=== PATIENT | male | born 1960 | race Caucasian/White ===

== ENCOUNTER 2021-03-05 13:22 | Inpatient (IN) ==
[2021-03-15] MEDS ORDERED: GLUCAGON 1 MG VIAL IM PRN ×2 (09:03)
[2021-03-15] MEDS ORDERED: DEXTROSE 10% 25 GM/250 ML BAG IV PRN ×2 (09:03)
[2021-03-15] MEDS ORDERED: NITROGLYCERIN SL 0.4 MG TABLET SL PRN (09:08)
[2021-03-15] MEDS ORDERED: CLORAZEPATE 3.75 MG TABLET PO PRN (09:08)
[2021-03-15] MEDS ORDERED: MORPHINE 2 MG/1 ML SYRINGE IV PRN (09:08)
[2021-03-15] MEDS ORDERED: hydrALAZINE 20 MG/1 ML VIAL IV PRN (09:09)
[2021-03-15 10:59] LABS: Basophils % 0.7 % (0.0-0.8); Eosinophils # 0.1 10*3/uL (0.0-0.87); Hematocrit 51.5 VOL% (42.0-52.0); Hemoglobin 16.5 GM/DL (14.0-18.0); Immature Granulocytes % 1.6 %; Immature Granulocytes Absolute 0.09 #; Lymphocytes # 1.2 10*3/uL (1.4-4.0); Lymphocytes % 21.2 % (21.2-54.2); Mean Corpuscular Volume 88.8 FL (87-102); Mean Platelet Volume 11.8 FL (9.6-12.0); Monocytes % 8.9 % (1.7-12.7); Neutrophils % 66.6 % (38.7-73.9); Platelet Count 196 T/CUMM (130-400); Red Cell Distribution Width 12.7 % (9.3-17.3); White Blood Count 5.8 T/CUMM (4-12)
[2021-03-15 11:27] LABS: Alanine Aminotransferase 34 U/L (16-61); Albumin 3.3 G/DL (3.4-5.0); Alkaline Phosphatase 93 U/L (45-117); Aspartate Amino Transferase 19 U/L (0-37); Bilirubin,Total < 0.39 MG/DL (0.20-1.00); Blood Urea Nitrogen 16 MG/DL (7-18); Calcium 9.6 MG/DL (8.5-10.1); Carbon Dioxide 31 MMOL/L (21-32); Glucose 165 MG/DL (74-106); Osmolality,Calculated 279.7 MOS/KG (273-304); Potassium 4.3 MMOL/L (3.5-5.1); Sodium 138 MMOL/L (136-145); Total Protein 8.2 G/DL (6.4-8.2)
[2021-03-15 11:31] LABS: Estimated Glom Filtration Rate 0 ML/MIN
[2021-03-15] MEDS: INSULIN REGULAR 100 UNIT/ML SUBCUT SCH ×3 (13:13→21:29)
[2021-03-15] MEDS ORDERED: SODIUM CHLORIDE 0.9% 1,000 ML IV SCH (15:00)
[2021-03-15] MEDS: CHLORHEXIDINE 4% SOLN 118 ML BOTTLE TOP SCH ×2 (15:10→20:45)
[2021-03-15 15:50] LABS: ABG HCO3 26.1 MMOL/L (20-26); ABG Oxygen Saturation 95.4 % (95-100); ABG PCO2 43.3 MM HG (35-48); ABG PH 7.406 (7.35-7.45); ABG PO2 79.6 MM HG (80-95); ABG TCO2 22.7 MMOL/L (23-27)
[2021-03-15] MEDS: CHLORHEXIDINE 0.12% ORAL RINSE 60 ML BOTTLE SWISH/SPIT SCH (21:29)
[2021-03-16] MEDS ORDERED: VANCOMYCIN 1,000 MG VIAL ONE (04:19)
[2021-03-16] MEDS ORDERED: PAPAVERINE 60 MG/2 ML VIAL ONE (04:19)
[2021-03-16] MEDS ORDERED: VANCOMYCIN 500 MG VIAL ONE (04:19)
[2021-03-16] MEDS: CHLORHEXIDINE 4% SOLN 118 ML BOTTLE TOP SCH ×2 (04:45→19:15)
[2021-03-16] MEDS ORDERED: CEFUROXIME INJ 1,500 MG in SODIUM CHLORIDE 0.9% 100 ML IV ONE (05:00)
[2021-03-16] MEDS ORDERED: FAMOTIDINE 20 MG TABLET PO ONE (05:30)
[2021-03-16] MEDS ORDERED: DIAZEPAM 5 MG TABLET PO ONE (05:30)
[2021-03-16] MEDS ORDERED: SODIUM CHLORIDE 0.9% 250 ML IV ONE ×2 (06:03→11:26)
[2021-03-16] MEDS ORDERED: LACTATED RINGERS 1,000 ML IV ONE (06:03)
[2021-03-16] MEDS ORDERED: HEPARIN/NACL 0.9% 2 UNITS/ML 1,000 UNIT/500 ML BAG IV ONE (06:03)
[2021-03-16] MEDS ORDERED: NITROGLYCERIN DRIP 50 MG/250 ML BOTTLE IV ONE ×2 (06:03→08:41)
[2021-03-16] MEDS ORDERED: SODIUM CHLORIDE 0.9% 1,000 ML IV ONE (06:03)
[2021-03-16] MEDS ORDERED: PHENYLEPHRINE 10 MG/1 ML VIAL IV ONE (06:04)
[2021-03-16] MEDS ORDERED: MIDAZOLAM 10 MG/2 ML VIAL ONE ×4 (06:19→08:22)
[2021-03-16] MEDS ORDERED: AMINOCAPROIC ACID 5,000 MG/20 ML VIAL ONE (06:19)
[2021-03-16] MEDS ORDERED: SUFentanil 250 MCG/5 ML AMP ONE ×3 (06:20)
[2021-03-16] MEDS ORDERED: LIDOCAINE 2% 5 ML VIAL ONE ×2 (06:21→10:15)
[2021-03-16] MEDS ORDERED: SEVOFLURANE 1 UNIT/15 MINUTE INH ONE ×17 (06:21→10:59)
[2021-03-16] MEDS ORDERED: CALCIUM CHLORIDE 1,000 MG/10 ML VIAL IV ONE ×2 (06:21→09:45)
[2021-03-16] MEDS ORDERED: ePHEDrine 50 MG/ML VIAL ONE (06:21)
[2021-03-16] MEDS ORDERED: VECURONIUM 10 MG VIAL IV ONE ×2 (06:21→08:24)
[2021-03-16] MEDS ORDERED: SUCCINYLCHOLINE 200 MG/10 ML VIAL ONE (06:53)
[2021-03-16 07:33] LABS: ABG Base Excess 0.4 MMOL/L (-2.5-2.5); ABG HCO3 24.8 MMOL/L (20-26); ABG Oxygen Saturation 99.1 % (95-100); ABG PCO2 47.7 MM HG (35-48); ABG PH 7.356 (7.35-7.45); ABG TCO2 22.8 MMOL/L (23-27); Glucose Heart Surgery 152 MG/DL (74-106); Hematocrit Heart Surgery 46.2 PERCENT (42-52); Hemoglobin Heart Surgery 15.1 G/DL (14.0-18.0); Ionized Calcium Arterial 1.22 MMOL/L (1.21-1.46); PCO2 Patient Temp Arterial 47.7 MMHG; PH Patient Temp Arterial 7.356; Patient Temperature 37 CELCIUS; Potassium Heart/CVR 4.2 MMOL/L (3.5-5.1); Sodium Heart/CVR 141 MMOL/L (135-145)
[2021-03-16 07:41] LABS: Bilirubin,Urine Negative (Negative); Blood, Urine Negative (Negative); Glucose,Urine (UA) Negative (Negative); Ketones,Urine Negative (Negative); Mucus,Urine Few /LPF (Occasional); Nitrite,Urine Negative (Negative); Protein,Urine 100 MG/DL; RBC,Urine 3 /HPF (0-4); Sperm,Urine Moderate /HPF (Negative); Squamous Epithelial Cell,Urine Occasional /HPF (0-10); Urine Appearance CLEAR (Clear); Urine Color Yellow (Yellow); Urine Specific Gravity 1.021 (1.001-1.035); Urine Urobilinogen < 2.0 EU/DL (<2.0)
[2021-03-16] MEDS ORDERED: MINERAL OIL/PETROLATUM OPH OINT 3.5 GM TUBE ONE (07:45)
[2021-03-16] MEDS ORDERED: PHENYLEPHRINE 1 MG/10 ML SYRINGE IV ONE (07:45)
[2021-03-16] MEDS ORDERED: ETOMIDATE 40 MG/20 ML VIAL IV ONE (07:54)
[2021-03-16] MEDS ORDERED: SODIUM BICARBONATE 50 MEQ/50 ML VIAL IV ONE ×2 (08:12→10:16)
[2021-03-16] MEDS ORDERED: POTASSIUM CHLORIDE RIDER 20 MEQ/100 ML PREMIX IV ONE (08:13)
[2021-03-16] MEDS ORDERED: CALCIUM CHLORIDE 1,000 MG/10 ML SYRINGE IV ONE (08:13)
[2021-03-16] MEDS ORDERED: PHENYLEPHRINE DRIP 40 MG/250 ML PREMIX IV ONE (08:13)
[2021-03-16] MEDS ORDERED: NITROPRUSSIDE 50 MG/2 ML VIAL ONE (08:13)
[2021-03-16] MEDS ORDERED: EPINEPHrine 1 MG/10 ML SYRINGE ONE (08:15)
[2021-03-16] MEDS ORDERED: LIDOCAINE 100 MG/5 ML SYRINGE ONE (08:15)
[2021-03-16] MEDS ORDERED: ALBUMIN 5% 12.5 GM/250 ML VIAL IV ONE ×2 (08:15)
[2021-03-16] MEDS ORDERED: ATROPINE 1 MG/10 ML SYRINGE ONE (08:15)
[2021-03-16 08:53] LABS: Hematocrit Heart Surgery 34.3 PERCENT (42-52); Hemoglobin Heart Surgery 11.1 G/DL (14.0-18.0); PCO2 Patient Temp Venous 36.4 MM HG; PH Patient Temp Venous 7.452; PO2 Patient Temp Venous 37.2 MM HG; Potassium Heart/CVR 4.4 MMOL/L (3.5-5.1); VBG Base Excess 1.6 MEQ/L (0-4); VBG HCO3 25.6 MEQ/L (24-28); VBG Oxygen Saturation 81.2 %; VBG PH 7.408; VBG PO2 45.8 MMHG (17-40); VBG Total CO2 23.8 MMOL/L
[2021-03-16 09:25] LABS: Hematocrit Heart Surgery 37.5 PERCENT (42-52); Hemoglobin Heart Surgery 12.2 G/DL (14.0-18.0); PCO2 Patient Temp Venous 33.7 MM HG; PH Patient Temp Venous 7.479; PO2 Patient Temp Venous 38.3 MM HG; Potassium Heart/CVR 4.1 MMOL/L (3.5-5.1); VBG HCO3 25.8 MEQ/L (24-28); VBG Oxygen Saturation 83.1 %; VBG PH 7.435; VBG PO2 47.1 MMHG (17-40); VBG Total CO2 23.1 MMOL/L
[2021-03-16] MEDS ORDERED: THROMBIN TOPICAL (RECOMBINANT) 5,000 UNIT VIAL TOP ONE (09:31)
[2021-03-16 10:12] LABS: ABG Base Excess -0.4 MMOL/L (-2.5-2.5); ABG Oxygen Saturation 95.4 % (95-100); ABG PCO2 37.7 MM HG (35-48); ABG PO2 77.8 MM HG (80-95); ABG TCO2 20.8 MMOL/L (23-27); Glucose Heart Surgery 241 MG/DL (74-106); Hematocrit Heart Surgery 40.7 PERCENT (42-52); Hemoglobin Heart Surgery 13.2 G/DL (14.0-18.0); Ionized Calcium Arterial 1.26 MMOL/L (1.21-1.46); PCO2 Patient Temp Arterial 37.7 MMHG; PO2 Patient Temp Arterial 77.8 MM HG; Patient Temperature 37 CELCIUS; Sodium Heart/CVR 136 MMOL/L (135-145)
[2021-03-16] MEDS ORDERED: MAGNESIUM SULFATE 5 GM/10 ML VIAL IV ONE (10:15)
[2021-03-16] MEDS ORDERED: ALBUMIN 25% 25 GM/100 ML VIAL IV ONE (10:15)
[2021-03-16] MEDS ORDERED: PROTAMINE SULFATE 50 MG/5 ML VIAL IV ONE ×3 (10:16→11:31)
[2021-03-16] MEDS ORDERED: HEPARIN 10,000 UNIT/10 ML VIAL ONE (10:16)
[2021-03-16] MEDS ORDERED: FUROSEMIDE 20 MG/2 ML VIAL ONE (10:16)
[2021-03-16] MEDS ORDERED: MANNITOL 100 GM/500 ML BAG IV ONE (10:16)
[2021-03-16] MEDS ORDERED: PROTAMINE SULFATE 250 MG/25 ML VIAL IV ONE (10:16)
[2021-03-16] MEDS ORDERED: methylPREDNISolone SOD SUC 1,000 MG/8 ML VIAL ONE (10:16)
[2021-03-16] MEDS ORDERED: DEXTROSE 5% KCL 20 MEQ 20 MEQ/1,000 ML BAG IV ONE (10:16)
[2021-03-16] MEDS ORDERED: LACTATED RINGERS 250 ML IV PRN (10:56)
[2021-03-16] MEDS ORDERED: INSULIN REGULAR 100 UNIT/ML IV PRN (10:56)
[2021-03-16] MEDS ORDERED: INSULIN REGULAR 100 UNIT/ML IV ONE (10:56)
[2021-03-16] MEDS ORDERED: CHLORHEXIDINE 4% SOLN 118 ML BOTTLE TOP PRN (10:56)
[2021-03-16] MEDS ORDERED: MAGNESIUM SULF RIDER 4 GM/100 ML PREMIX IV PRN (10:56)
[2021-03-16] MEDS ORDERED: MIDAZOLAM 2 MG/2 ML VIAL IV PRN (10:56)
[2021-03-16] MEDS ORDERED: NITROPRUSSIDE 100 MG in DEXTROSE 5% 250 ML IV PRN (10:56)
[2021-03-16] MEDS ORDERED: MORPHINE 10 MG/1 ML VIAL IV PRN (10:56)
[2021-03-16] MEDS ORDERED: ONDANSETRON 4 MG/2 ML VIAL IV PRN (10:56)
[2021-03-16] MEDS ORDERED: ACETAMINOPHEN 650 MG SUPP RECTAL PRN (10:56)
[2021-03-16] MEDS ORDERED: MIDAZOLAM 10 MG/2 ML VIAL IV PRN (10:56)
[2021-03-16] MEDS ORDERED: SODIUM CHLORIDE 0.45% 1,000 ML IV SCH ×2 (10:56)
[2021-03-16] MEDS ORDERED: PHENYLEPHRINE DRIP 40 MG/250 ML PREMIX IV PRN (10:56)
[2021-03-16] MEDS ORDERED: DEXTROSE 10% 250 ML BAG IV PRN ×2 (10:56)
[2021-03-16] MEDS ORDERED: MAGNESIUM SULF RIDER 2 GM/50 ML PREMIX IV PRN (10:56)
[2021-03-16] MEDS ORDERED: VECURONIUM 10 MG VIAL IV PRN ×2 (10:56)
[2021-03-16] MEDS ORDERED: CALCIUM CHLORIDE 1,000 MG/10 ML SYRINGE IV PRN (10:56)
[2021-03-16] MEDS ORDERED: POTASSIUM CHLORIDE RIDER 10 MEQ/100 ML PREMIX IV PRN (10:56)
[2021-03-16] MEDS: ALBUMIN 5% 12.5 GM/250 ML VIAL IV PRN ×3 (11:30→13:55)
[2021-03-16 11:44] LABS: ABG Base Excess -0.8 MMOL/L (-2.5-2.5); ABG HCO3 23.7 MMOL/L (20-26); ABG Oxygen Saturation 94.9 % (95-100); ABG PCO2 36.2 MM HG (35-48); ABG PH 7.416 (7.35-7.45); ABG PO2 76.8 MM HG (80-95); ABG TCO2 20.3 MMOL/L (23-27); Glucose Heart Surgery 209 MG/DL (74-106); Hematocrit Heart Surgery 40.4 PERCENT (42-52); Hemoglobin Heart Surgery 13.1 G/DL (14.0-18.0); Potassium Heart/CVR 3.5 MMOL/L (3.5-5.1)
[2021-03-16 11:44] LABS: Basophils % 0.3 % (0.0-0.8); Eosinophils % 0.2 % (0.00-10.9); Hematocrit 38.4 VOL% (42.0-52.0); Immature Granulocytes Absolute 0.11 #; Lymphocytes # 1.7 10*3/uL (1.4-4.0); Lymphocytes % 15.3 % (21.2-54.2); Mean Corpuscular HGB Conc 33.1 GM/DL (32-36); Mean Corpuscular Volume 88.3 FL (87-102); Mean Platelet Volume 11.9 FL (9.6-12.0); Monocytes % 4.8 % (1.7-12.7); Neutrophils % 78.4 % (38.7-73.9); Red Cell Distribution Width 12.6 % (9.3-17.3)
[2021-03-16 11:49] LABS: Hemoglobin 12.7 GM/DL (14.0-18.0); Platelet Count 140 T/CUMM (130-400); Red Blood Count 4.35 MC/CUMM (3.8-5.5); White Blood Count 11.4 T/CUMM (4-12)
[2021-03-16] MEDS: LACTATED RINGERS 1,000 ML IV PRN ×3 (12:00→17:00)
[2021-03-16 12:16] LABS: INR 1.1; PT Patient Result 12.1 SECS (10.5-12.0); Partial Thromboplastin Time 27.3 SECS (23.8-32.1)
[2021-03-16 12:18] LABS: CKMB % 7.5 %; High Sensitive Troponin I* 4024.2 ng/L (0-78)
[2021-03-16] MEDS: INSULIN REGULAR DRIP 100 ML IV SCH (12:23)
[2021-03-16 12:26] LABS: Albumin 2.6 G/DL (3.4-5.0); Bilirubin,Total 0.9 MG/DL (0.20-1.00); Calcium 8.4 MG/DL (8.5-10.1); Potassium 3.6 MMOL/L (3.5-5.1); Total Protein 5.5 G/DL (6.4-8.2)
[2021-03-16 13:21] LABS: ABG Base Excess -1.1 MMOL/L (-2.5-2.5); ABG HCO3 23.5 MMOL/L (20-26); ABG Oxygen Saturation 97.9 % (95-100); ABG PCO2 36.5 MM HG (35-48); ABG PH 7.409 (7.35-7.45); ABG TCO2 20.5 MMOL/L (23-27); Glucose Heart Surgery 199 MG/DL (74-106); Hematocrit Heart Surgery 35.7 PERCENT (42-52); Hemoglobin Heart Surgery 11.6 G/DL (14.0-18.0); Potassium Heart/CVR 3.1 MMOL/L (3.5-5.1)
[2021-03-16] MEDS: POTASSIUM CHLORIDE RIDER 20 MEQ/100 ML PREMIX IV PRN ×3 (14:11→19:30)
[2021-03-16 15:37] LABS: ABG Base Excess -3.3 MMOL/L (-2.5-2.5); ABG HCO3 21.7 MMOL/L (20-26); ABG Oxygen Saturation 97.6 % (95-100); ABG PCO2 33.6 MM HG (35-48); ABG TCO2 18.6 MMOL/L (23-27); Glucose Heart Surgery 185 MG/DL (74-106); Hematocrit Heart Surgery 34.4 PERCENT (42-52); Hemoglobin Heart Surgery 11.2 G/DL (14.0-18.0); Potassium Heart/CVR 3.6 MMOL/L (3.5-5.1)
[2021-03-16] MEDS: KETOROLAC 30 MG/1 ML VIAL IV SCH ×2 (16:23→21:55)
[2021-03-16 17:40] LABS: ABG Base Excess -2.7 MMOL/L (-2.5-2.5); ABG HCO3 22.1 MMOL/L (20-26); ABG PCO2 30.2 MM HG (35-48); ABG PH 7.439 (7.35-7.45); ABG PO2 79.4 MM HG (80-95); ABG TCO2 18.3 MMOL/L (23-27); Glucose Heart Surgery 166 MG/DL (74-106); Hematocrit Heart Surgery 34.4 PERCENT (42-52); Hemoglobin Heart Surgery 11.2 G/DL (14.0-18.0); Potassium Heart/CVR 3.7 MMOL/L (3.5-5.1)
[2021-03-16] MEDS: CEFUROXIME INJ 1,500 MG in SODIUM CHLORIDE 0.9% 100 ML IV SCH (18:45)
[2021-03-16 19:14] LABS: ABG Base Excess -2.5 MMOL/L (-2.5-2.5); ABG HCO3 22.3 MMOL/L (20-26); ABG Oxygen Saturation 93.3 % (95-100); ABG PCO2 40.8 MM HG (35-48); ABG PH 7.357 (7.35-7.45); ABG PO2 73.3 MM HG (80-95); ABG TCO2 20.5 MMOL/L (23-27); Glucose Heart Surgery 150 MG/DL (74-106); Hemoglobin Heart Surgery 11.4 G/DL (14.0-18.0); Potassium Heart/CVR 3.8 MMOL/L (3.5-5.1)
[2021-03-16] MEDS: INSULIN REGULAR 100 UNIT/ML SUBCUT SCH (19:15)
[2021-03-16] MEDS: CHLORHEXIDINE 0.12% ORAL RINSE 60 ML BOTTLE SWISH/SPIT SCH (19:16)
[2021-03-16] MEDS ORDERED: FUROSEMIDE 40 MG/4 ML VIAL IV ONE (19:47)
[2021-03-16] MEDS ORDERED: CHLORHEXIDINE 0.12% ORAL RINSE 60 ML BOTTLE SWISH/SPIT SCH (21:00)
[2021-03-16 21:43] LABS: CKMB % 6.7 %; High Sensitive Troponin I* 4547.8 ng/L (0-78)
[2021-03-17 00:25] LABS: ABG Base Excess 2.2 MMOL/L (-2.5-2.5); ABG HCO3 26.3 MMOL/L (20-26); ABG Oxygen Saturation 94.7 % (95-100); ABG PCO2 42.8 MM HG (35-48); ABG PH 7.409 (7.35-7.45); ABG PO2 74.2 MM HG (80-95); ABG TCO2 24.2 MMOL/L (23-27); Glucose Heart Surgery 165 MG/DL (74-106); Hematocrit Heart Surgery 35.6 PERCENT (42-52); Hemoglobin Heart Surgery 11.5 G/DL (14.0-18.0); Potassium Heart/CVR 4.3 MMOL/L (3.5-5.1)
[2021-03-17] MEDS: POTASSIUM CHLORIDE RIDER 20 MEQ/100 ML PREMIX IV PRN ×2 (00:59→05:35)
[2021-03-17] MEDS: INSULIN REGULAR DRIP 100 ML IV SCH (02:02)
[2021-03-17 04:11] LABS: ABG Base Excess 1.2 MMOL/L (-2.5-2.5); ABG HCO3 25.7 MMOL/L (20-26); ABG PCO2 40.1 MM HG (35-48); ABG PH 7.424 (7.35-7.45); ABG PO2 72.7 MM HG (80-95); ABG TCO2 26.9 MMOL/L (23-27); Glucose Heart Surgery 137 MG/DL (74-106); Hemoglobin Heart Surgery 11.7 G/DL (14.0-18.0); Potassium Heart/CVR 4.2 MMOL/L (3.5-5.1)
[2021-03-17 04:12] LABS: Basophils % 0.1 % (0.0-0.8); Hematocrit 34.6 VOL% (42.0-52.0); Hemoglobin 11.2 GM/DL (14.0-18.0); Immature Granulocytes % 0.6 %; Lymphocytes # 0.6 10*3/uL (1.4-4.0); Lymphocytes % 3.3 % (21.2-54.2); Mean Corpuscular HGB Conc 32.4 GM/DL (32-36); Mean Corpuscular Volume 89.4 FL (87-102); Mean Platelet Volume 12.1 FL (9.6-12.0); Monocytes % 4.7 % (1.7-12.7); Neutrophils % 91.3 % (38.7-73.9); Platelet Count 148 T/CUMM (130-400); Red Blood Count 3.87 MC/CUMM (3.8-5.5); Red Cell Distribution Width 13.1 % (9.3-17.3); White Blood Count 17.8 T/CUMM (4-12)
[2021-03-17] MEDS: KETOROLAC 30 MG/1 ML VIAL IV SCH ×4 (04:33→21:41)
[2021-03-17 04:39] LABS: Band Neutrophils 4 % (0-10); Lymphocytes 2 % (20-55); Platelet Estimate Normal; Segmented Neutrophils 86 % (50-85); Total Cells Counted 100
[2021-03-17 04:47] LABS: CKMB % 4.3 %; High Sensitive Troponin I* 3421.2 ng/L (0-78)
[2021-03-17 04:56] LABS: Alanine Aminotransferase 27 U/L (16-61); Albumin 2.9 G/DL (3.4-5.0); Alkaline Phosphatase 53 U/L (45-117); Aspartate Amino Transferase 48 U/L (0-37); Bilirubin,Total < 0.39 MG/DL (0.20-1.00); Blood Urea Nitrogen 15 MG/DL (7-18); Calcium 8.4 MG/DL (8.5-10.1); Carbon Dioxide 28 MMOL/L (21-32); Estimated Glom Filtration Rate 116 ML/MIN; Glucose 150 MG/DL (74-106); Osmolality,Calculated 284.3 MOS/KG (273-304); Potassium 4.2 MMOL/L (3.5-5.1); Sodium 141 MMOL/L (136-145); Total Protein 6.1 G/DL (6.4-8.2)
[2021-03-17] MEDS: CEFUROXIME INJ 1,500 MG in SODIUM CHLORIDE 0.9% 100 ML IV SCH ×2 (06:35→17:37)
[2021-03-17] MEDS ORDERED: MAGNESIUM SULF RIDER 2 GM/50 ML PREMIX IV PRN (08:51)
[2021-03-17] MEDS ORDERED: ONDANSETRON 4 MG/2 ML VIAL IV PRN (08:51)
[2021-03-17] MEDS ORDERED: GLUCAGON 1 MG VIAL IM PRN (08:51)
[2021-03-17] MEDS ORDERED: DEXTROSE 10% 250 ML BAG IV PRN (08:51)
[2021-03-17] MEDS ORDERED: MAGNESIUM SULF RIDER 4 GM/100 ML PREMIX IV PRN (08:51)
[2021-03-17] MEDS ORDERED: ACETAMINOPHEN 325 MG TABLET PO PRN (08:51)
[2021-03-17] MEDS ORDERED: ALUMINUM/MAGNES/SIMETH MAX STR 30 ML UDCUP PO PRN (08:51)
[2021-03-17] MEDS ORDERED: MAGNESIUM HYDROXIDE SUSP 30 ML UDCUP PO PRN (08:51)
[2021-03-17] MEDS: INSULIN REGULAR 100 UNIT/ML SUBCUT SCH ×4 (08:56→21:42)
[2021-03-17] MEDS ORDERED: SODIUM CHLOR 0.45% KCL 20 MEQ 20 MEQ/1,000 ML BAG IV SCH (09:00)
[2021-03-17] MEDS: PANTOPRAZOLE 40 MG TABLET PO SCH (09:01)
[2021-03-17] MEDS: ASPIRIN 325 MG TABLET PO SCH (09:02)
[2021-03-17] MEDS: oxyCODONE/ACETAMINOPHEN 5-325 MG TABLET PO PRN (09:03)
[2021-03-17] MEDS: FERROUS SULFATE 325 MG TABLET PO SCH (09:04)
[2021-03-17] MEDS: METOPROLOL TARTRATE 25 MG TABLET PO SCH ×2 (09:09→21:41)
[2021-03-17] MEDS: DOCUSATE SODIUM 100 MG CAPSULE PO SCH (09:10)
[2021-03-17] MEDS: CHLORHEXIDINE 0.12% ORAL RINSE 60 ML BOTTLE SWISH/SPIT SCH ×2 (09:36→21:45)
[2021-03-17 13:19] LABS: CKMB % 2.4 %; High Sensitive Troponin I* 2826.1 ng/L (0-78)
[2021-03-17] MEDS ORDERED: AMIODARONE INJ 150 MG in DEXTROSE 5% 100 ML IV ONE (14:45)
[2021-03-17] MEDS ORDERED: AMIODARONE INJ 450 MG in DEXTROSE 5% 241 ML IV SCH (15:00)
[2021-03-17] MEDS ORDERED: SODIUM CHLORIDE 0.65% NASAL SPRAY 45 ML BOTTLE BOTH NARES PRN (17:46)
[2021-03-17] MEDS: CLORAZEPATE 3.75 MG TABLET PO PRN ×2 (18:39→21:41)
[2021-03-17] MEDS: AMIODARONE INJ 450 MG in DEXTROSE 5% 241 ML IV SCH (21:40)
[2021-03-17] MEDS: ATORVASTATIN 40 MG TABLET PO SCH (21:41)
[2021-03-17] MEDS ORDERED: LORazepam 2 MG/1 ML VIAL IV PRN (23:41)
[2021-03-18 05:12] LABS: Basophils % 0.2 % (0.0-0.8); Hematocrit 33.1 VOL% (42.0-52.0); Hemoglobin 10.6 GM/DL (14.0-18.0); Immature Granulocytes % 0.8 %; Lymphocytes # 1.4 10*3/uL (1.4-4.0); Lymphocytes % 11.1 % (21.2-54.2); Mean Corpuscular Volume 90.9 FL (87-102); Mean Platelet Volume 12.8 FL (9.6-12.0); Monocytes % 5.7 % (1.7-12.7); Neutrophils % 82.2 % (38.7-73.9); Platelet Count 143 T/CUMM (130-400); Red Blood Count 3.64 MC/CUMM (3.8-5.5); Red Cell Distribution Width 13.3 % (9.3-17.3); White Blood Count 12.9 T/CUMM (4-12)
[2021-03-18 05:47] LABS: Albumin 2.6 G/DL (3.4-5.0); Bilirubin,Direct 0.14 MG/DL (0.0-0.20); Calcium 8.1 MG/DL (8.5-10.1); Osmolality,Calculated 285.4 MOS/KG (273-304); Potassium 4.1 MMOL/L (3.5-5.1)
[2021-03-18 05:50] LABS: Alanine Aminotransferase 24 U/L (16-61); Albumin 2.5 G/DL (3.4-5.0); Alkaline Phosphatase 54 U/L (45-117); Aspartate Amino Transferase 37 U/L (0-37); Bilirubin,Indirect 0.4 MG/DL (0.0-1.0)
[2021-03-18] MEDS ORDERED: FUROSEMIDE 40 MG/4 ML VIAL IV ONE (06:00)
[2021-03-18] MEDS: KETOROLAC 30 MG/1 ML VIAL IV SCH ×5 (06:01→21:31)
[2021-03-18] MEDS: INSULIN REGULAR 100 UNIT/ML SUBCUT SCH ×6 (06:49→20:52)
[2021-03-18] MEDS: ASPIRIN 325 MG TABLET PO SCH (09:42)
[2021-03-18] MEDS: DOCUSATE SODIUM 100 MG CAPSULE PO SCH (09:42)
[2021-03-18] MEDS: PANTOPRAZOLE 40 MG TABLET PO SCH (09:42)
[2021-03-18] MEDS: METOPROLOL TARTRATE 25 MG TABLET PO SCH ×2 (09:42→20:46)
[2021-03-18] MEDS: FERROUS SULFATE 325 MG TABLET PO SCH (09:43)
[2021-03-18] MEDS: CHLORHEXIDINE 0.12% ORAL RINSE 60 ML BOTTLE SWISH/SPIT SCH ×2 (09:43→20:46)
[2021-03-18] MEDS: AMIODARONE 200 MG TABLET PO SCH ×2 (11:23→20:45)
[2021-03-18] MEDS: oxyCODONE/ACETAMINOPHEN 5-325 MG TABLET PO PRN (14:43)
[2021-03-18] MEDS: AMIODARONE INJ 450 MG in DEXTROSE 5% 241 ML IV SCH (15:35)
[2021-03-18] MEDS: ATORVASTATIN 40 MG TABLET PO SCH (20:45)
[2021-03-19] MEDS: INSULIN REGULAR 100 UNIT/ML SUBCUT SCH ×6 (00:37→21:21)
[2021-03-19] MEDS: KETOROLAC 30 MG/1 ML VIAL IV SCH ×4 (04:56→21:36)
[2021-03-19 05:45] LABS: Albumin 2.4 G/DL (3.4-5.0); Bilirubin,Direct 0.16 MG/DL (0.0-0.20); Bilirubin,Total 0.7 MG/DL (0.20-1.00); Calcium 8.4 MG/DL (8.5-10.1); Osmolality,Calculated 280.7 MOS/KG (273-304); Potassium 3.7 MMOL/L (3.5-5.1); Total Protein 6.2 G/DL (6.4-8.2)
[2021-03-19 05:46] LABS: Alanine Aminotransferase 30 U/L (16-61); Albumin 2.4 G/DL (3.4-5.0); Alkaline Phosphatase 57 U/L (45-117); Aspartate Amino Transferase 41 U/L (0-37); Bilirubin,Indirect 1.9 MG/DL (0.0-1.0); Total Protein 6.1 G/DL (6.4-8.2)
[2021-03-19 07:34] LABS: Basophils % 0.2 % (0.0-0.8); Eosinophils # 0.1 10*3/uL (0.0-0.87); Eosinophils % 1.1 % (0.00-10.9); Hematocrit 30.7 VOL% (42.0-52.0); Hemoglobin 9.8 GM/DL (14.0-18.0); Immature Granulocytes % 1.1 %; Immature Granulocytes Absolute 0.09 #; Lymphocytes # 1.2 10*3/uL (1.4-4.0); Lymphocytes % 13.7 % (21.2-54.2); Mean Corpuscular HGB Conc 31.9 GM/DL (32-36); Mean Corpuscular Volume 90.8 FL (87-102); Monocytes % 7.5 % (1.7-12.7); Neutrophils % 76.4 % (38.7-73.9); Platelet Count 130 T/CUMM (130-400); Red Blood Count 3.38 MC/CUMM (3.8-5.5); Red Cell Distribution Width 13.2 % (9.3-17.3); White Blood Count 8.6 T/CUMM (4-12)
[2021-03-19] MEDS: PANTOPRAZOLE 40 MG TABLET PO SCH (10:03)
[2021-03-19] MEDS: ASPIRIN 325 MG TABLET PO SCH (10:03)
[2021-03-19] MEDS: AMIODARONE 200 MG TABLET PO SCH ×2 (10:03→21:20)
[2021-03-19] MEDS: METOPROLOL TARTRATE 25 MG TABLET PO SCH ×2 (10:03→21:20)
[2021-03-19] MEDS: FERROUS SULFATE 325 MG TABLET PO SCH (10:04)
[2021-03-19] MEDS: DOCUSATE SODIUM 100 MG CAPSULE PO SCH (10:04)
[2021-03-19] MEDS: POTASSIUM CHLORIDE 20 MEQ TABLET PO PRN ×2 (10:04→10:05)
[2021-03-19] MEDS: CHLORHEXIDINE 0.12% ORAL RINSE 60 ML BOTTLE SWISH/SPIT SCH ×2 (10:04→21:21)
[2021-03-19] MEDS ORDERED: AMIODARONE INJ 150 MG in DEXTROSE 5% 100 ML IV ONE (12:01)
[2021-03-19] MEDS: ATORVASTATIN 40 MG TABLET PO SCH (21:21)
[2021-03-20] MEDS: ZALEPLON 5 MG CAPSULE PO PRN (00:17)
[2021-03-20] MEDS: KETOROLAC 30 MG/1 ML VIAL IV SCH ×4 (03:40→21:32)
[2021-03-20] MEDS: ASPIRIN CHEW 81 MG TABLET PO SCH (08:53)
[2021-03-20] MEDS: FERROUS SULFATE 325 MG TABLET PO SCH (08:53)
[2021-03-20] MEDS: AMIODARONE 200 MG TABLET PO SCH ×2 (08:53→21:31)
[2021-03-20] MEDS: METOPROLOL TARTRATE 25 MG TABLET PO SCH ×2 (08:55→21:31)
[2021-03-20] MEDS: ASCORBIC ACID 500 MG TABLET PO SCH ×2 (08:55→21:31)
[2021-03-20] MEDS: PANTOPRAZOLE 40 MG TABLET PO SCH (08:55)
[2021-03-20] MEDS: APIXABAN 5 MG TABLET PO SCH ×2 (08:55→21:31)
[2021-03-20] MEDS: DOCUSATE SODIUM 100 MG CAPSULE PO SCH (08:55)
[2021-03-20] MEDS: INSULIN REGULAR 100 UNIT/ML SUBCUT SCH ×4 (08:56→21:32)
[2021-03-20] MEDS: CHLORHEXIDINE 0.12% ORAL RINSE 60 ML BOTTLE SWISH/SPIT SCH ×2 (08:56→21:32)
[2021-03-20] MEDS: ATORVASTATIN 40 MG TABLET PO SCH (21:31)
[2021-03-21] MEDS: KETOROLAC 30 MG/1 ML VIAL IV SCH ×2 (04:11→10:11)
[2021-03-21 05:07] LABS: Basophils % 0.5 % (0.0-0.8); Eosinophils # 0.2 10*3/uL (0.0-0.87); Hematocrit 31.2 VOL% (42.0-52.0); Hemoglobin 9.9 GM/DL (14.0-18.0); Immature Granulocytes % 3.8 %; Immature Granulocytes Absolute 0.21 #; Lymphocytes # 0.9 10*3/uL (1.4-4.0); Lymphocytes % 16.5 % (21.2-54.2); Mean Corpuscular HGB Conc 31.7 GM/DL (32-36); Mean Corpuscular Volume 91.5 FL (87-102); Mean Platelet Volume 12.8 FL (9.6-12.0); Monocytes % 9.8 % (1.7-12.7); Neutrophils % 66.4 % (38.7-73.9); Platelet Count 178 T/CUMM (130-400); Red Blood Count 3.41 MC/CUMM (3.8-5.5); Red Cell Distribution Width 12.7 % (9.3-17.3); White Blood Count 5.6 T/CUMM (4-12)
[2021-03-21 05:31] LABS: Alanine Aminotransferase 57 U/L (16-61); Albumin 2.3 G/DL (3.4-5.0); Alkaline Phosphatase 60 U/L (45-117); Aspartate Amino Transferase 52 U/L (0-37); Bilirubin,Indirect 0.3 MG/DL (0.0-1.0); Blood Urea Nitrogen 21 MG/DL (7-18); Calcium 8.4 MG/DL (8.5-10.1); Carbon Dioxide 25 MMOL/L (21-32); Estimated Glom Filtration Rate 105 ML/MIN; Glucose 128 MG/DL (74-106); Osmolality,Calculated 279.7 MOS/KG (273-304); Potassium 4.3 MMOL/L (3.5-5.1); Sodium 138 MMOL/L (136-145); Total Protein 6.2 G/DL (6.4-8.2)
[2021-03-21] MEDS: INSULIN REGULAR 100 UNIT/ML SUBCUT SCH ×4 (09:39→20:33)
[2021-03-21] MEDS: DOCUSATE SODIUM 100 MG CAPSULE PO SCH (10:06)
[2021-03-21] MEDS: CHLORHEXIDINE 0.12% ORAL RINSE 60 ML BOTTLE SWISH/SPIT SCH ×2 (10:06→20:33)
[2021-03-21] MEDS: PANTOPRAZOLE 40 MG TABLET PO SCH (10:07)
[2021-03-21] MEDS: FERROUS SULFATE 325 MG TABLET PO SCH (10:07)
[2021-03-21] MEDS: METOPROLOL TARTRATE 25 MG TABLET PO SCH ×2 (10:07→20:32)
[2021-03-21] MEDS: APIXABAN 5 MG TABLET PO SCH ×2 (10:08→20:32)
[2021-03-21] MEDS: ASCORBIC ACID 500 MG TABLET PO SCH ×2 (10:08→20:32)
[2021-03-21] MEDS: ASPIRIN CHEW 81 MG TABLET PO SCH (10:08)
[2021-03-21] MEDS: AMIODARONE 200 MG TABLET PO SCH ×2 (10:08→20:32)
[2021-03-21] MEDS ORDERED: SERTRALINE 25 MG TABLET PO ONE (10:54)
[2021-03-21] MEDS: oxyCODONE/ACETAMINOPHEN 5-325 MG TABLET PO PRN (14:06)
[2021-03-21] MEDS: ATORVASTATIN 40 MG TABLET PO SCH (20:32)
[2021-03-21] MEDS ORDERED: SERTRALINE 25 MG TABLET PO SCH (21:00)
[2021-03-22] MEDS: ZALEPLON 5 MG CAPSULE PO PRN (00:08)
[2021-03-22 04:54] LABS: Basophils # 0.1 10*3/uL (0.0-0.2); Basophils % 0.8 % (0.0-0.8); Eosinophils # 0.1 10*3/uL (0.0-0.87); Eosinophils % 1.7 % (0.00-10.9); Hematocrit 33.4 VOL% (42.0-52.0); Hemoglobin 10.6 GM/DL (14.0-18.0); Immature Granulocytes % 4.6 %; Lymphocytes % 14.6 % (21.2-54.2); Mean Corpuscular HGB Conc 31.7 GM/DL (32-36); Mean Corpuscular Volume 91.3 FL (87-102); Mean Platelet Volume 12.8 FL (9.6-12.0); Monocytes % 9.9 % (1.7-12.7); Neutrophils % 68.4 % (38.7-73.9); Platelet Count 219 T/CUMM (130-400); Red Blood Count 3.66 MC/CUMM (3.8-5.5); Red Cell Distribution Width 12.8 % (9.3-17.3); White Blood Count 6.6 T/CUMM (4-12)
[2021-03-22 05:15] LABS: Alanine Aminotransferase 53 U/L (16-61); Albumin 2.5 G/DL (3.4-5.0); Alkaline Phosphatase 66 U/L (45-117); Aspartate Amino Transferase 39 U/L (0-37); Bilirubin,Indirect 0.3 MG/DL (0.0-1.0); Blood Urea Nitrogen 17 MG/DL (7-18); Calcium 8.7 MG/DL (8.5-10.1); Carbon Dioxide 26 MMOL/L (21-32); Estimated Glom Filtration Rate 119 ML/MIN; Glucose 119 MG/DL (74-106); Osmolality,Calculated 277.7 MOS/KG (273-304); Potassium 4.4 MMOL/L (3.5-5.1); Sodium 138 MMOL/L (136-145); Total Protein 6.5 G/DL (6.4-8.2)
[2021-03-22] MEDS: INSULIN REGULAR 100 UNIT/ML SUBCUT SCH ×2 (09:58→13:55)
[2021-03-22] MEDS: APIXABAN 5 MG TABLET PO SCH (10:01)
[2021-03-22] MEDS: DOCUSATE SODIUM 100 MG CAPSULE PO SCH (10:01)
[2021-03-22] MEDS: PANTOPRAZOLE 40 MG TABLET PO SCH (10:01)
[2021-03-22] MEDS: METOPROLOL TARTRATE 25 MG TABLET PO SCH (10:01)
[2021-03-22] MEDS: ASCORBIC ACID 500 MG TABLET PO SCH (10:02)
[2021-03-22] MEDS: AMIODARONE 200 MG TABLET PO SCH (10:02)
[2021-03-22] MEDS: ASPIRIN CHEW 81 MG TABLET PO SCH (10:03)
[2021-03-22] MEDS: FERROUS SULFATE 325 MG TABLET PO SCH (10:03)
[2021-03-22] MEDS: CHLORHEXIDINE 0.12% ORAL RINSE 60 ML BOTTLE SWISH/SPIT SCH (10:04)
[2021-03-22 13:53] VITALS: BP 147/82
== END 2021-03-22 12:45 | disposition home health service (06) | DRG 236 ==
LOC: N.TELES 03-15 10:22 → N.CVR 03-16 10:57 → N.ICU 03-17 09:23 → N.TELES 03-17 15:43